=== PATIENT | female | born 1995 | race African-American/Black ===

== ENCOUNTER 2016-10-31 21:17 | Emergency (ER) | payer OTHER, MEDICAID ==
[2016-10-31 22:06] LABS: ABSOLUTE EOSINOPHILS # (AUTO) 0.1 10^3/uL (0.0-0.6); ABSOLUTE LYMPHOCYTES (AUTO) 1.7 10^3/uL (0.5-4.7); ABSOLUTE MONOCYTES (AUTO) 0.5 10^3/uL (0.1-1.4); ABSOLUTE NEUT (AUTO) 4.4 10^3/uL (1.7-8.2); BASOPHILS % (AUTO) 0.7 % (0-2); EOSINOPHILS % (AUTO) 1.9 % (0-6); HEMATOCRIT 39.7 % (36.0-47.0); HGB HCT DIFFERENCE -0.7; LYMPHOCYTES % (AUTO) 25.4 % (13-45); MEAN CORPUSCULAR HEMOGLOBIN 29.2 pg (27.0-33.4); MEAN CORPUSCULAR HGB CONC 32.7 g/dL (32.0-36.0); MEAN CORPUSCULAR VOLUME 89 fl (80-97); MONOCYTES % (AUTO) 6.8 % (3-13); RED BLOOD COUNT 4.45 10^6/uL (3.72-5.28); RED CELL DISTRIBUTION WIDTH 16.1 % (11.5-14.0); SEGMENTED NEUTROPHILS % (AUTO) 65.2 % (42-78); WHITE BLOOD COUNT 6.7 10^3/uL (4.0-10.5)
[2016-10-31 22:15] LABS: APPEARANCE,URINE SLIGHTLY-CLOUDY; BILIRUBIN,URINE NEGATIVE (NEGATIVE); GLUCOSE, URINE NEGATIVE (NEGATIVE); KETONES,URINE TRACE mg/dL (NEGATIVE); LEUKOCYTE ESTERASE,URINE NEGATIVE (NEGATIVE); NITRITE,URINE NEGATIVE (NEGATIVE); PROTEIN,URINE 30 mg/dL (NEGATIVE); URINE SPECIFIC GRAVITY 1.028; UROBILINOGEN,URINE NEGATIVE mg/dL (<2.0)
--- NOTE | 2016-10-31 22:15 | ER Document Report ---
ED Psych Disorder / Suicide - General Chief Complaint: Psych Problem Stated Complaint: PSYCH EVAL Time Seen by Provider: 10/31/16 21:23 Mode of Arrival: Ambulatory Information source: Patient TRAVEL OUTSIDE OF THE [place] IN LAST 30 DAYS: No - HPI Onset was: Cannot confirm Quality of pain: No pain Suicide Risk Factors: Age <19, Depressed, Lack of social support Normal mood: No Associated symptoms: Depressed, Flat affect Similar symptoms previously: Yes Recently seen / treated by doctor: No Notes: Patient is a 20-year-old female who presents to the emergency room complaining of depression, she reports that she had some passive thoughts of suicide earlier today but has no active plan and is not currently suicidal, she has been treated for depression in the past after an overdose on her medications, but has not followed up with mental health service, she reports that she has been staying with some friends and has been getting her life back on track, however went to go stay with her father today who seems to be a negative influence on her and makes her more depressed than she was while staying with friends, she denies any pain at the present time, states that she called [facility] to see if she could be hospitalized there because she is "tired of being depressed every day", they recommended she come to the emergency room - Related Data Allergies/Adverse Reactions: No Known Allergies Allergy (Verified 01/23/16 18:02) Past Medical History - General Information source: Patient - Social History Smoking Status: Current Every Day Smoker Chew tobacco use (# tins/day): No Frequency of alcohol use: Social Drug Abuse: Marijuana Family History: Other - Multiple family members with schizophrenia, bipolar and depression including her mother and aunt Patient has suicidal ideation: Yes Patient has homicidal ideation: No Renal/ Medical History: Denies: Hx Peritoneal Dialysis Surgical Hx: Negative - Immunizations Immunizations up to date: Yes Hx Diphtheria, Pertussis, Tetanus Vaccination: Yes Hx Pneumococcal Vaccination: 03/14/16 Review of Systems - Review of Systems Constitutional: No symptoms reported EENT: No symptoms reported Cardiovascular: No symptoms reported Respiratory: No symptoms reported Gastrointestinal: No symptoms reported Genitourinary: No symptoms reported Female Genitourinary: No symptoms reported Musculoskeletal: No symptoms reported Skin: No symptoms reported Hematologic/Lymphatic: No symptoms reported Neurological/Psychological: See HPI -: Yes All other systems reviewed and negative Physical Exam - Vital signs Vitals: Temp Pulse Resp BP Pulse Ox 97.9 F 71 16 129/93 H 99 10/31/16 21:23 10/31/16 21:23 10/31/16 21:23 10/31/16 21:23 10/31/16 21:23 Interpretation: Normal - General General appearance: Appears well, Alert - HEENT Head: Normocephalic, Atraumatic Eyes: Normal Pupils: PERRL - Respiratory Respiratory status: No respiratory distress Chest status: Nontender Breath sounds: Normal Chest palpation: Normal - Cardiovascular Rhythm: Regular Heart sounds: Normal auscultation Murmur: No - Abdominal Inspection: Normal Distension: No distension Bowel sounds: Normal Tenderness: Nontender Organomegaly: No organomegaly - Back Back: Normal, Nontender - Extremities General upper extremity: Normal inspection, Nontender, Normal color, Normal ROM , Normal temperature General lower extremity: Normal inspection, Nontender, Normal color, Normal ROM , Normal temperature, Normal weight bearing. No: Jad's sign - Neurological Neuro grossly intact: Yes Cognition: Normal Orientation: AAOx4 Sae Coma Scale Eye Opening: Spontaneous [place] Coma Scale Verbal: Oriented [place] Coma Scale Motor: Obeys Commands Sae Coma Scale Total: 15 Speech: Normal Motor strength normal: LUE, RUE, LLE, RLE Sensory: Normal - Psychological Associated symptoms: Depressed - Skin Skin Temperature: Warm Skin Moisture: Dry Skin Color: Normal Course - Re-evaluation Re-evalutation: 10/31/16 22:18 20-year-old female with depression, not currently medicated or in any mental health services, denies active suicidal ideation, therefore patient does not meet criteria for involuntary commitment, she does agree to stay in the emergency room overnight tonight to talk to her mental health team in the morning for further recommendations and resources - Vital Signs Vital signs: Temp Pulse Resp BP Pulse Ox 97.9 F 71 16 129/93 H 99 10/31/16 21:23 10/31/16 21:23 10/31/16 21:23 10/31/16 21:23 10/31/16 21:23 - Laboratory Result Diagrams: 10/31/16 21:56 10/31/16 21:56 Laboratory results interpreted by me: 10/31/16 10/31/16 10/31/16 21:56 21:56 21:56 RDW 16.1 H Direct Bilirubin 0.5 H Total Protein 8.6 H Urine Protein 30 H Urine Ketones TRACE H Salicylates < 1.0 L Acetaminophen < 10 L Discharge - Discharge Clinical Impression: Depression Qualifiers: Depression Type: unspecified Qualified Code(s): F32.9 - Major depressive disorder, single episode, unspecified Condition: Stable Disposition: PSYCH HOSP/UNIT
[2016-10-31 22:23] LABS: URINE BARBITURATES SCREEN NEGATIVE; URINE METHADONE SCREEN NEGATIVE; URINE OPIATES LOW NEGATIVE; URINE PHENCYCLIDINE SCREEN NEGATIVE
[2016-10-31 22:33] LABS: ALANINE AMINOTRANSFERASE 35 U/L (5-35); ALBUMIN 4.6 g/dL (3.7-5.6); ALKALINE PHOSPHATASE 85 U/L (50-135); ANION GAP 13 (5-19); ASPARTATE AMINO TRANSFERASE 29 U/L (5-30); BILIRUBIN,DIRECT 0.5 mg/dL (0.0-0.4); BILIRUBIN,TOTAL 0.6 mg/dL (0.2-1.3); BLOOD UREA NITROGEN 7 mg/dL (7-20); CALCIUM 10.2 mg/dL (8.4-10.2); CARBON DIOXIDE 25 mmol/L (22-30); CHLORIDE 105 mmol/L (98-107); CREATININE RESULT 0.76 mg/dL (0.52-1.25); GLUCOSE 88 mg/dL (75-110); POTASSIUM 4.5 mmol/L (3.6-5.0); SODIUM 142.7 mmol/L (137-145); TOTAL PROTEIN 8.6 g/dL (6.3-8.2)
[2016-10-31 22:36] LABS: ALCOHOL < 10 mg/dL (NONE DETECTED)
--- NOTE | 2016-11-01 09:49 | ER Document Report ---
Doctor's Note Notes: 11/01/16 09:49 I have evaluated this patient this am and has no c/o at this time. Feels all of their needs are being met and physical exam is normal. Awaiting dispositon per mental health. 11/01/16 10:38 Pt seen by Mental Health (see note). Provided her with resources and she has follow-up appointment at [facility] tomorrow. Once again, patient denies any suicidal ideation or homicidal ideation. She is going home with her stepmother.
--- NOTE | 2016-11-01 10:31 | ER Document Report ---
ED Psych Disorder / Suicide - General Mode of Arrival: Ambulatory Information source: Patient, [facility] Records TRAVEL OUTSIDE OF THE [place] IN LAST 30 DAYS: No - HPI Patient complains to provider of: Suicidal ideation - passive thoughts, no plan Onset: Just prior to arrival Onset was: Sudden Suicide Risk Factors: Depressed, Lack of social support, Prior suicide attempt Situational problems related to: Parent, Other - few social supports Normal mood: Yes Associated symptoms: Normal affect - pt smiling, Normal mood Similar symptoms previously: Yes - multiple vists last year Recently seen / treated by doctor: No <GINA MAGDALENO - Last Filed: 11/01/16 10:28> <MARILEE POSEY - Last Filed: 11/01/16 10:38> - General Chief Complaint: Psych Problem Stated Complaint: PSYCH EVAL Time Seen by Provider: 10/31/16 21:23 - HPI Notes: Patient is a 20 year old female who presented yesterday seeking assistance for her depression. Patient does have a history of Bipolar Disorder, with prior suicide attempts via OD. Patient was seen in this Department and also sent inpatient to address concerns of her mental health acuity. Upon arrival last night, patient denies suicidal ideations, plan, means, or intent and was subsequently held voluntarily overnight for resources. Patient this morning states she has not been on her meds x1 year. Patient states she stays in [place] and does not have reliable transportation. Patient states she was staying temporarily with friends who were helping her look for a job, but during that time her father moved and discarded all of her belongings. Patient states she plans to permanently reside with her father/stepmother; however, has little emotional and social supports there. Patient states her stepmother works shift coordinator and sleeps during thew day. Patient states she is just tired of being depressed every day. Patient states since she is now going to be residing with her father, she feels she needs to get back on her medications. Patient was unable to name her previous medications. She does state it has been roughly 1 year since she has followed up with [facility] and or took her medications. Patient denies suicidal/homicidal ideations. Patient provided consent to speak with her father, Roland. Patient's father, Roland : states she just came back to his home yesterday. He states she can return, he has no concerns, and he will assist her in the morning with following up with an outpatient provider. Patient was A&O. Mood was calm and cooperative with smiling affect. Patient denies suicidal/homicidal ideations, intent, plan, or means. Patient denies A/V H; delusions not noted. Thought processes were organized. Conversational speech was WNL for this patient. Intellectual abilities were estimated within average range. Attention and focus were fair. Insight, judgment and impulse control were poor. Unspecified Bipolar Disorder Posttraumatic Disorder Polysubstance Abuse Patient is psychiatrically cleared and recommended for discharge. Patient does not met IVC criteria as she denies SI.HI. Patient does have a history of prior attempts; however, no recent attempts and this morning denies all ideations. Patient states she feels her needs are to resume her medications to assist her with her mood while residing with her father. Patient provided psychoeducation that this is appropriate for outpatient services and was provided resources to engage in treatment. I consulted with Dr. Ramon in regards to the care and management of this patient. (GINA MAGDALENO) - Related Data Allergies/Adverse Reactions: No Known Allergies Allergy (Verified 01/23/16 18:02) Past Medical History - General Information source: Patient, [facility] Records - Social History Smoking Status: Current Every Day Smoker Chew tobacco use (# tins/day): No Smoking Education Provided: Yes Frequency of alcohol use: Social Drug Abuse: Cocaine, Marijuana Family History: Other - Multiple family members with schizophrenia, bipolar and depression including her mother and aunt Patient has suicidal ideation: Yes Patient has homicidal ideation: No Renal/ Medical History: Denies: Hx Peritoneal Dialysis Surgical Hx: Negative - Immunizations Immunizations up to date: Yes Hx Diphtheria, Pertussis, Tetanus Vaccination: Yes Hx Pneumococcal Vaccination: 03/14/16 <GINA MAGDALENO - Last Filed: 11/01/16 10:28> Course - Laboratory Result Diagrams: 10/31/16 21:56 10/31/16 21:56 <GINA MAGDALENO - Last Filed: 11/01/16 10:28> - Laboratory Result Diagrams: 10/31/16 21:56 10/31/16 21:56 <MARILEE POSEY - Last Filed: 11/01/16 10:38> - Vital Signs Vital signs: Temp Pulse Resp BP Pulse Ox 98.1 F 55 L 16 115/68 100 11/01/16 08:03 11/01/16 08:03 11/01/16 08:03 11/01/16 08:03 11/01/16 08:03 - Laboratory Laboratory results interpreted by me: 10/31/16 10/31/16 10/31/16 21:56 21:56 21:56 RDW 16.1 H Direct Bilirubin 0.5 H Total Protein 8.6 H Urine Protein 30 H Urine Ketones TRACE H Salicylates < 1.0 L Acetaminophen < 10 L Discharge <GINA MAGDALENO - Last Filed: 11/01/16 10:28> <MARILEE POSEY - Last Filed: 11/01/16 10:38> - Discharge Clinical Impression: Cocaine abuse, Marijuana abuse Depression Qualifiers: Depression Type: unspecified Qualified Code(s): F32.9 - Major depressive disorder, single episode, unspecified Bipolar disorder Qualifiers: Active/Remission status: remission status unspecified Qualified Code(s): F31.9 - Bipolar disorder, unspecified Condition: Stable Disposition: HOME, SELF-CARE Additional Instructions: Cocaine Abuse Cocaine causes many dangerous medical problems. Problems can occur even with "usual" amounts. Cocaine affects judgement, creating a sense of invulnerability. Cocaine users often make bad decisions that seem "great" at the time. Most cocaine users eventually will be hurt by bad job performance, damaged personal relations, crime, and unsafe sexual practices. Toxic effects of cocaine can include seizures, hallucinations, delusions, high blood pressure, heart damage, or sudden . There's always the risk of a "bad batch." But heart attacks, brain hemorrhages, or cardiac arrest can occur unpredictably even with "normal" use. Injection of cocaine is risky for abscesses, endocarditis (heart infection) , pneumonia, and AIDS. Withdrawal from cocaine often causes anxiety and drug cravings. Some users become paranoid and psychotic. Many treatment programs are available, but you must make the decision to quit. Medication can be prescribed to control the symptoms of cocaine toxicity (beta blockers or benzodiazepines). Withdrawal symptoms may require tranquilizers. Depression Your evaluation reveals that you have mental depression. While symptoms may be vague, they often include disturbance of sleep, fatigue, loss of appetite , and general loss of interest in life. While depression may be a side effect of drugs, or a reaction to a major change in your life, many cases have no known cause. If depression is acute, and related to a major loss in your life, you can expect it to clear completely with time. If you have been depressed a long time , are prone to repeated bouts of depression or low mood, or have been thinking of suicide, get help. Depression can be treated with anti-depressant medication and counselling. Long-term depression will often take a few weeks to clear, even with appropriate medication. Follow-up care is important. Contact your physician, the hospital emergency center, crisis line, or your counsellor if you are losing control or having self-destructive thoughts. Bipolar Disorder Bipolar disorder is also called manic-depressive disorder. Depression alternates with brain hyperactivity called manny. Each phase lasts from several days to a few weeks. We don't know exactly what causes bipolar disorder , but it's treatable. During the "manic phase," you may feel elated and energetic. You may have racing thoughts, rapid speech, increased activity, and grandiose ideas. During this time, you may not realize how poor your judgement is. Inappropriate spending, drug abuse, excessive alcohol use, marriage problems, and irresponsible sexual behavior are common during the manic phase. During the "depressive phase," you might feel depressed, guilty, worthless , fatigued, and unable to concentrate. You might have thoughts of suicide. Good treatments are available for bipolar disorder. Cane [place] is a classic drug for bipolar disorder, and is still often useful. If the manic phase is very mild, an antidepressant alone can be prescribed. If the manic phase is very severe, an antipsychotic medicine (such as Haldol) may be needed. The treatment must be matched to your symptoms, so it's important to work closely with your psychiatric care provider. Contact your physician, the hospital emergency center, crisis line, or your counsellor if you are losing control or having self-destructive thoughts. Please follow up with a provider of your choice. You have been provided a list of resources to assist you in doing this. In the past, you have followed up with [facility] [place]. Please return if your symptoms worsen. Referrals: [facility] [place] [Provider Group] - Follow up as needed
[2016-11-01 10:52] VITALS: BP 125/70
--- NOTE | 2016-11-01 17:05 | EKG REPORT ---
SEVERITY:- NORMAL ECG - SINUS RHYTHM : Confirmed by: Marlene Skinner MD 01-Nov-2016 17:04:27
== END 2016-11-01 10:52 | disposition home or self-care (01) ==
LOC: ER 21:17
DX: F31.9 Bipolar disorder, unspecified (principal); F12.10 Cannabis abuse, uncomplicated; F14.10 Cocaine abuse, uncomplicated; F17.200 Nicotine dependence, unspecified, uncomplicated; Z81.8 Family history of other mental and behavioral disorders; Z91.5 Personal history of self-harm
CPT/HCPCS: 36415; 80053; 80307; 81001; 84703; 85025; 93005; 93010; 99284

== ENCOUNTER 2017-10-19 10:51 | Emergency (ER) | payer MEDICAID, OTHER ==
[2017-10-19 10:57] VITALS: BP 110/69
--- NOTE | 2017-10-19 11:11 | ER Document Report ---
ED ENT - General Chief Complaint: Ear Pain Stated Complaint: EAR PROBLEM Time Seen by Provider: 10/19/17 11:00 Mode of Arrival: Ambulatory Information source: Patient TRAVEL OUTSIDE OF THE [place] IN LAST 30 DAYS: No - HPI Patient complains to provider of: Ear problem Notes: Patient is here with complaints of left ear pain and decreased hearing. She states that it has been that way for about a month. No injury. No drainage. No fever. No nausea, vomiting, diarrhea. No dizziness. No rash. No headache. Nothing makes her symptoms better or worse. - Related Data Allergies/Adverse Reactions: No Known Allergies Allergy (Verified 10/19/17 10:52) Past Medical History - Social History Smoking Status: Never Smoker Family History: Other - Multiple family members with schizophrenia, bipolar and depression including her mother and aunt Renal/ Medical History: Denies: Hx Peritoneal Dialysis - Immunizations Immunizations up to date: Yes Hx Diphtheria, Pertussis, Tetanus Vaccination: Yes Hx Pneumococcal Vaccination: 03/14/16 Review of Systems - Review of Systems -: Yes All other systems reviewed and negative Physical Exam - Vital signs Vitals: Temp Pulse Resp BP Pulse Ox 99.0 F 58 L 20 110/69 98 10/19/17 10:55 10/19/17 10:55 10/19/17 10:55 10/19/17 10:55 10/19/17 10:55 - Notes Notes: GENERAL: alert, cooperative, nontoxic, no distress. HEAD: normocephalic, atraumatic EYES: conjunctiva pink without discharge, no external redness or swelling. EARS: no external swelling, no external redness, no mastoid redness, swelling, tenderness. Ear canals are clear without swelling or drainage. TMs pearly bella , no redness, no perforation. Left TM with effusion and retraction. NOSE: atraumatic, no external swelling. clear rhinorrhea noted. MOUTH/THROAT: mucous membranes moist and pink, posterior pharynx without erythema, swelling, exudate. No trismus or drooling. NECK: soft, supple, full range of motion, no meningismus. CHEST: no distress, lungs clear and equal throughout. No wheezing, rales, rhonchi. CARDIAC: regular rate and rhythm, no murmur, normal capillary refill, normal pulses. No peripheral edema noted. BACK: full range of motion, no CVA tenderness. EXTREMITIES: full range of motion of all extremities. No redness, no swelling. NEURO: alert and oriented A&O3, no focal deficits, full range of motion of all extremities. PYSCH: appropriate mood, affect. Patient is cooperative. SKIN: pink, warm, dry, no rash. Course - Re-evaluation Re-evalutation: 10/19/17 11:09 Patient is nontoxic appearing with stable vitals. She is here with complaints of left ear pain and decreased hearing. On exam she is noted to have fluid and retraction of the left TM. No perforation. No redness or signs of infection. The patient is experiencing some eustachian tube dysfunction at this time. She was discharged home with Claritin and Flonase. Referral to ENT if her symptoms persist. Follow-up for severe pain, fever, drainage, redness or swelling around the outside ear, or for any further concerns. The patient's emergency department workup and current diagnosis were explained to the patient and or family. Follow-up instructions were provided. Medications if prescribed were discussed. Instructions for when to return to the emergency department including specific worrisome symptoms were discussed with the patient and/or family. - Vital Signs Vital signs: Temp Pulse Resp BP Pulse Ox 99.0 F 58 L 20 110/69 98 10/19/17 10:55 10/19/17 10:55 10/19/17 10:55 10/19/17 10:55 10/19/17 10:55 Discharge - Discharge Clinical Impression: Eustachian tube dysfunction Qualifiers: Laterality: left Qualified Code(s): H69.82 - Other specified disorders of Eustachian tube, left ear Condition: Stable Disposition: HOME, SELF-CARE Additional Instructions: Take medications as prescribed. Follow-up with ENT if not better in 1 week, sooner for worsening symptoms, high fever, pain, drainage, any further concerns. Prescriptions: Fluticasone Propionate [Flonase Nasal [place] 50 Mcg/[place] 16 gm] 1 spray NASL Q12 #1 inhaler Loratadine [Claritin 10 mg Tablet] 10 mg PO DAILY #15 tablet Forms: Smoking Cessation Education Referrals: [facility]ERTRU[facility] STYLES MD [Primary Care Provider] - Follow up as needed SERGIO JORDAN DO [ASSOCIATE] - Follow up as needed
== END 2017-10-19 11:09 | disposition home or self-care (01) ==
LOC: ER 10:51
DX: H69.82 Other specified disorders of Eustachian tube, left ear (principal); H92.02 Otalgia, left ear
CPT/HCPCS: 99282

== ENCOUNTER 2018-01-31 10:42 | Emergency (ER) | payer MEDICAID ==
[2018-01-31 10:50] VITALS: BP 128/75
--- NOTE | 2018-01-31 11:34 | ER Document Report ---
HPI - HPI Patient complains to provider of: Sinus problems Pain Level: 4 Context: Patient is a 22-year-old healthy female complaining of sinus pressure and drainage 3-4 days. Patient was recently seen by ENT for fluid behind her left ear. She was prescribed 2 medications which she has picked up neither of them as of yet. Patient also complains of intermittent sharp mid to lower abdominal pains 2 days. Patient is presently on her menses. She denies any nausea, vomiting or fever. No vaginal pain, discharge or odor. No urinary symptoms. No back pain. No fever. Associated Symptoms: None Exacerbated by: Denies Relieved by: Denies Similar symptoms previously: Yes Recently seen / treated by doctor: Yes - ROS Systems Reviewed and Negative: Yes All other systems reviewed and negative - REPRODUCTIVE Reproductive: DENIES: : Past Medical History - General Information source: Patient - Social History Smoking Status: Current Every Day Smoker Frequency of alcohol use: None Drug Abuse: None Lives with: Family Family History: Reviewed & Not Pertinent, Other - Multiple family members with schizophrenia, bipolar and depression including her mother and aunt - Medical History Medical History: Negative - Past Medical History Cardiac Medical History: Reports: None Renal/ Medical History: Denies: Hx Peritoneal Dialysis - Immunizations Immunizations up to date: Yes Hx Diphtheria, Pertussis, Tetanus Vaccination: Yes Hx Pneumococcal Vaccination: 03/14/16 Vertical Provider Document - CONSTITUTIONAL Agree With Documented VS: Yes Exam Limitations: No Limitations - INFECTION CONTROL TRAVEL OUTSIDE OF THE [place] IN LAST 30 DAYS: No - HEENT HEENT: PERRLA, Pharyngeal Erythema Notes: Left TM dull, positive effusion. Sinuses are nontender - NECK Neck: Normal Inspection, Supple - RESPIRATORY Respiratory: Breath Sounds Normal, No Respiratory Distress - CARDIOVASCULAR Cardiovascular: Regular Rate, Regular Rhythm - GI/ABDOMEN Gastrointestinal: Abdomen Soft, Abdomen Tender - Mild chin-umbilical and suprapubic tenderness. No guarding - BACK Back: Normal Inspection. negative: CVA Tenderness-Right, CVA Tenderness-Left - NEURO Level of Consciousness: Awake, Alert, Appropriate - DERM Integumentary: Warm, Dry, No Rash Course - Re-evaluation Re-evalutation: 01/31/18 11:32 History and physical are consistent with an upper respiratory viral infection with a left serous otitis media. Patient has medications waiting for her at the pharmacy for this. After performing a Medical Screening Examination, I estimate there is LOW risk for ACUTE APPENDICITIS, BOWEL OBSTRUCTION, ACUTE CHOLECYSTITIS, PERFORATED DIVERTICULITIS, INCARCERATED HERNIA, PANCREATITIS, PELVIC INFLAMMATORY DISEASE, PERFORATED ULCER, ECTOPIC , or TUBO- OVARIAN ABSCESS, thus I consider the discharge disposition reasonable. Also, there is no evidence or peritonitis, sepsis, or toxicity. I have reevaluated this patient multiple times and no significant life threatening changes are noted. The patient and I have discussed the diagnosis and risks, and we agree with discharging home with close follow-up with the understanding that symptoms and presentations can change. We also discussed returning to the Emergency Department immediately if new or worsening symptoms occur. We have discussed the symptoms which are most concerning (e.g., bloody stool, fever, changing or worsening pain, vomiting) that necessitate immediate return. - Vital Signs Vital signs: Temp Pulse Resp BP Pulse Ox 98.3 F 65 16 128/75 H 98 01/31/18 10:49 01/31/18 10:49 01/31/18 10:49 01/31/18 10:49 01/31/18 10:49 Discharge - Discharge Clinical Impression: Acute sinusitis Qualifiers: Sinusitis location: unspecified location Recurrence: non-recurrent Qualified Code(s): J01.90 - Acute sinusitis, unspecified Abdominal pain Qualifiers: Abdominal location: periumbilical Qualified Code(s): R10.33 - Periumbilical pain Condition: Stable Disposition: HOME, SELF-CARE Instructions: Abdominal Pain ([facility]), Antispasmodics ([facility]), Steroid Medication Additional Instructions: Take medications as prescribed Please meat pickler medications prescribed by the ENT and take those as prescribed Push fluids Follow-up with ENT as scheduled Prescriptions: Prednisone 20 mg PO BID #16 tablet Referrals: GERTRUDE STYLES MD [Primary Care Provider] - Follow up as needed
== END 2018-01-31 11:52 | disposition home or self-care (01) ==
LOC: ER 10:42
DX: J01.90 Acute sinusitis, unspecified (principal); R10.33 Periumbilical pain; H93.8X2 Other specified disorders of left ear; F17.200 Nicotine dependence, unspecified, uncomplicated
CPT/HCPCS: 99283

== ENCOUNTER 2018-02-01 03:10 | Emergency (ER) | payer SELFPAY ==
[2018-02-01 04:22] LABS: APPEARANCE,URINE CLEAR; BILIRUBIN,URINE NEGATIVE (NEGATIVE); COLOR,URINE YELLOW; GLUCOSE, URINE NEGATIVE (NEGATIVE); KETONES,URINE NEGATIVE (NEGATIVE); LEUKOCYTE ESTERASE,URINE NEGATIVE (NEGATIVE); NITRITE,URINE NEGATIVE (NEGATIVE); PROTEIN,URINE 30 mg/dL (NEGATIVE); URINE SPECIFIC GRAVITY 1.013; UROBILINOGEN,URINE NEGATIVE mg/dL (<2.0)
[2018-02-01 04:35] LABS: URINE AMPHETAMINES SCREEN NEGATIVE; URINE BARBITURATES SCREEN NEGATIVE; URINE BENZODIAZEPINES SCREEN NEGATIVE; URINE COCAINE SCREEN NEGATIVE; URINE MARIJUANA (THC) SCREEN UNCONFIRMED POSITIVE; URINE METHADONE SCREEN NEGATIVE; URINE PHENCYCLIDINE SCREEN NEGATIVE
[2018-02-01 04:52] LABS: ABSOLUTE BASOPHILS # (AUTO) 0.1 10^3/uL (0.0-0.2); ABSOLUTE EOSINOPHILS # (AUTO) 0.3 10^3/uL (0.0-0.6); ABSOLUTE LYMPHOCYTES (AUTO) 2.4 10^3/uL (0.5-4.7); ABSOLUTE MONOCYTES (AUTO) 0.6 10^3/uL (0.1-1.4); ABSOLUTE NEUT (AUTO) 4.4 10^3/uL (1.7-8.2); BASOPHILS % (AUTO) 0.7 % (0-2); EOSINOPHILS % (AUTO) 3.9 % (0-6); HEMATOCRIT 34.6 % (36.0-47.0); HEMOGLOBIN 11.8 g/dL (12.0-15.5); LYMPHOCYTES % (AUTO) 31.3 % (13-45); MEAN CORPUSCULAR HEMOGLOBIN 32.5 pg (27.0-33.4); MEAN CORPUSCULAR HGB CONC 33.9 g/dL (32.0-36.0); MEAN CORPUSCULAR VOLUME 96 fl (80-97); MONOCYTES % (AUTO) 7.7 % (3-13); PLATELET COUNT 254 10^3/uL (150-450); RED BLOOD COUNT 3.61 10^6/uL (3.72-5.28); RED CELL DISTRIBUTION WIDTH 13.9 % (11.5-14.0); SEGMENTED NEUTROPHILS % (AUTO) 56.4 % (42-78); TOTAL CELLS COUNTED % (AUTO) 100 %; WHITE BLOOD COUNT 7.7 10^3/uL (4.0-10.5)
[2018-02-01 04:58] LABS: ALANINE AMINOTRANSFERASE 39 U/L (9-52); ALBUMIN 3.6 g/dL (3.5-5.0); ALCOHOL 46 mg/dL (NONE DETECTED); ALKALINE PHOSPHATASE 63 U/L (38-126); ANION GAP 14 (5-19); ASPARTATE AMINO TRANSFERASE 31 U/L (14-36); BILIRUBIN,DIRECT 0.1 mg/dL (0.0-0.4); BILIRUBIN,TOTAL 0.1 mg/dL (0.2-1.3); BLOOD UREA NITROGEN 13 mg/dL (7-20); CALCIUM 8.8 mg/dL (8.4-10.2); CARBON DIOXIDE 23 mmol/L (22-30); CHLORIDE 110 mmol/L (98-107); GLUCOSE 93 mg/dL (75-110); POTASSIUM 3.7 mmol/L (3.6-5.0); SODIUM 147.2 mmol/L (137-145); TOTAL PROTEIN 6.8 g/dL (6.3-8.2)
[2018-02-01 05:05] LABS: ACETAMINOPHEN < 10 ug/mL (10-30); SALICYLATE < 1.0 mg/dL (2.0-20.0)
[2018-02-01] MEDS ORDERED: DIPH/PERTUSS(ACELL)/TETANUS VAC/PF 0.5 ML SYR (>=10YO) IM ONE ×2 (05:17→09:00)
--- NOTE | 2018-02-01 05:19 | ER Document Report ---
ED General - General TRAVEL OUTSIDE OF THE [place] IN LAST 30 DAYS: No <GERMAN PACHECO - Last Filed: 02/01/18 06:26> <GLADYS KEY - Last Filed: 02/01/18 16:00> <CAHRIS CERRATO - Last Filed: 02/01/18 16:12> - General Chief Complaint: Psych Problem Stated Complaint: PSYCH PROBLEM Time Seen by Provider: 02/01/18 03:45 Notes: Patient is a 22-year-old female who presents with complaint of depression. She says she has had a lot of things happen including 2 family members recently as well as having will get a good job and just many emotional things compounding at one time. She says she has had thoughts of suicide. Today she did some self cutting and took a knife and made small cuts on her abdominal wall. She is unsure when her last tetanus shot was. (GERMAN PACHECO) - Related Data Allergies/Adverse Reactions: No Known Allergies Allergy (Verified 01/31/18 10:42) Past Medical History - Social History Smoking Status: Current Some Day Smoker Frequency of alcohol use: None Drug Abuse: Marijuana Family History: Reviewed & Not Pertinent, Other - Multiple family members with schizophrenia, bipolar and depression including her mother and aunt Patient has suicidal ideation: Yes Patient has homicidal ideation: No Renal/ Medical History: Denies: Hx Peritoneal Dialysis Psychiatric Medical History: Reports: Hx Depression - Immunizations Immunizations up to date: Yes Hx Diphtheria, Pertussis, Tetanus Vaccination: Yes Hx Pneumococcal Vaccination: 03/14/16 <GERMAN PACHECO - Last Filed: 02/01/18 06:26> Review of Systems <GERMAN PACHECO - Last Filed: 02/01/18 06:26> <GLADYS KEY - Last Filed: 02/01/18 16:00> <CHARIS CERRATO - Last Filed: 02/01/18 16:12> - Review of Systems Notes: My Normal Review Basic REVIEW OF SYSTEMS: CONSTITUTIONAL : Denies fever, chills, or sweats. Denies recent illness. EENT: Denies eye, ear, throat, or mouth pain or symptoms. Denies nasal or sinus congestion. RESPIRATORY: Denies cough, cold, or chest congestion. Denies shortness of breath, difficulty breathing, or wheezing. GASTROINTESTINAL: Denies abdominal pain. Denies nausea, vomiting, or diarrhea. MUSCULOSKELETAL: Denies neck or back pain or joint pain or swelling. SKIN: Denies rash or skin lesions. NEUROLOGICAL: Denies altered mental status or loss of consciousness. Denies headache. Denies weakness or paralysis or loss of use of either side. Denies problems with gait or speech. Denies sensory or motor loss. Psychiatric: Depression, suicidal thoughts ALL OTHER SYSTEMS REVIEWED AND NEGATIVE. (GERMAN PACHECO) Physical Exam <GERMAN PACHECO - Last Filed: 02/01/18 06:26> <GLADYS KEY - Last Filed: 02/01/18 16:00> <CHARIS CERRATO - Last Filed: 02/01/18 16:12> - Vital signs Vitals: Temp Pulse Resp BP Pulse Ox 98.0 F 75 16 135/78 H 97 02/01/18 03:19 02/01/18 03:19 02/01/18 03:19 02/01/18 03:19 02/01/18 03:19 - Notes Notes: General Appearance: Well nourished, alert, cooperative, no acute distress, no obvious discomfort. Well-appearing. Vitals: reviewed, See vital signs table. Head: no swelling or tenderness to the head Eyes: PERRL, EOMI, Conjuctiva clear Lungs: No wheezing, No rales, No rhonci, No accessory muscle use, good air exchange bilaterally. Heart: Normal rate, Regular rythm, No murmur, no rub Abdomen: Normal BS, soft, No rigidity, No abdominal tenderness, No guarding, no rebound several small superficial cut smalls on her abdomen with no active bleeding and none requiring suturing. They cleaned these abrasions with peroxide. Extremities: strength 5/5 in all extremities, good pulses in all extremities, no swelling or tenderness in the extremities, no edema. Skin: warm, dry, appropriate color, no rash Neuro: speech clear, oriented x 3, normal affect, responds appropriately to questions. (GERMAN PACHECO) Course - Laboratory Result Diagrams: 02/01/18 04:38 02/01/18 04:38 <GERMAN PACHECO - Last Filed: 02/01/18 06:26> - Laboratory Result Diagrams: 02/01/18 04:38 02/01/18 04:38 <GLADYS KEY - Last Filed: 02/01/18 16:00> - Laboratory Result Diagrams: 02/01/18 04:38 02/01/18 04:38 <CHARIS CERRATO - Last Filed: 02/01/18 16:12> - Vital Signs Vital signs: Temp Pulse Resp BP Pulse Ox 97.9 F 78 18 108/60 98 02/01/18 08:06 02/01/18 08:06 02/01/18 08:06 02/01/18 08:06 02/01/18 08:06 - Laboratory Laboratory results interpreted by me: 02/01/18 02/01/18 02/01/18 03:40 04:38 04:38 RBC 3.61 L Hgb 11.8 L Hct 34.6 L Sodium 147.2 H Chloride 110 H Total Bilirubin 0.1 L Urine Protein 30 H Urine Blood SMALL H Salicylates < 1.0 L Acetaminophen < 10 L - EKG Interpretation by Me Additional EKG results interpreted by me: 02/01/18 05:14 EKG is reviewed and interpreted by me. EKG shows sinus rhythm with rate of [address] segment elevation or depression. No ischemic T-wave inversions. KS interval, QRS duration, QTc intervals are within normal range. No old EKG available for comparison. (GERMAN PACHECO) Discharge <GERMAN PACHECO - Last Filed: 02/01/18 06:26> <GLADYS KEY - Last Filed: 02/01/18 16:00> <CHARIS CERRATO - Last Filed: 02/01/18 16:12> - Discharge Clinical Impression: Suicidal ideation, Self-injurious behavior Depression Qualifiers: Depression Type: unspecified Qualified Code(s): F32.9 - Major depressive disorder, single episode, unspecified Condition: Stable Disposition: HOME, SELF-CARE Additional Instructions: DEPRESSION: Your evaluation reveals that you have mental depression. While symptoms may be vague, they often include disturbance of sleep, fatigue, loss of appetite , and general loss of interest in life. While depression may be a side effect of drugs, or a reaction to a major change in your life, many cases have no known cause. If depression is acute, and related to a major loss in your life, you can expect it to clear completely with time. If you have been depressed a long time , are prone to repeated bouts of depression or low mood, or have been thinking of suicide, get help. Depression can be treated with anti-depressant medication and counselling. Long-term depression will often take a few weeks to clear, even with appropriate medication. Follow-up care is important. SUICIDAL IDEATION: Suicidal ideation is a common medical term for thoughts about suicide, which may be as detailed as a formulated plan, without the suicidal act itself. Although most people who undergo suicidal ideation do not commit suicide, some go on to make suicide attempts. The range of suicidal ideation varies greatly from fleeting to detailed planning, role playing, and unsuccessful attempts. While thoughts about suicide are common, most people do not carry out serious actions to commit suicide. Based upon your evaluation and discussion with you, we do not believe you are currently at risk to act upon your thoughts of suicide. You have agreed to return to the Emergency Department, at any time , if you feel inclined to act upon your suicidal thoughts. FOLLOW-UP CARE: You have been provided the outpatient Mental Health/Substance Abuse resource sheet. you have been instructed to utilize Mobile Crisis this evening and any other time you may feel overwhelmed. You should walk in to [facility] first thing tomorrow (02/02/18) morning (0800) to initiate services. If you experience worsening or a significant change in your symptoms, notify the physician immediately or return to the Emergency Department at any time for re- evaluation. Referrals: GERTRUDE STYLES MD [Primary Care Provider] - Follow up as needed [facility] Crisis Team [Outside] - Follow up as needed [facility] [Outside] - 02/02/18 8:00 am
--- NOTE | 2018-02-01 08:47 | EKG REPORT ---
SEVERITY:- OTHERWISE NORMAL ECG - SINUS TACHYCARDIA ST ELEV, PROBABLE NORMAL EARLY REPOL PATTERN : Confirmed by: Bernice Garcia 01-Feb-2018 08:46:11
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
--- NOTE | 2018-02-01 15:57 | ER Document Report ---
Doctor's Note Notes: 02/01/18 15:54 Rounds: Chart reviewed and patient sound asleep, did not awaken to my voice calling her a couple of times. Patient is being evaluated for suicidal ideation and depression and anxiety. Lab studies were all normal except for the patient's alcohol level of 46 and positive marijuana on her drug screen. Vital signs were all essentially normal. Patient appears to be medically stable for transfer or discharge. Belkis Jackson MD
[2018-02-01 16:31] VITALS: BP 122/87
--- NOTE | 2018-02-04 08:57 | EKG REPORT ---
SEVERITY:- NORMAL ECG - SINUS RHYTHM : Confirmed by: Bernice Garcia 04-Feb-2018 08:56:30
== END 2018-02-01 16:36 | disposition home or self-care (01) ==
LOC: ER 03:10
DX: F32.9 Major depressive disorder, single episode, unspecified (principal); F12.10 Cannabis abuse, uncomplicated; X78.9XXA Intentional self-harm by unspecified sharp object, initial encounter; F17.200 Nicotine dependence, unspecified, uncomplicated
CPT/HCPCS: 36415; 80053; 80307; 81001; 84703; 85025; 90471; 90715; 93005; 93010; 99285

== ENCOUNTER 2019-04-20 09:50 | Emergency (ER) | payer OTHER ==
[2019-04-20 09:56] VITALS: BP 131/67
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
== END 2019-04-20 10:27 | disposition home or self-care (01) ==
LOC: ER 09:50
DX: S16.1XXA Strain of muscle, fascia and tendon at neck level, initial encounter (principal); R51 Headache; M79.18 Myalgia, other site; V49.50XA Passenger injured in collision with unspecified motor vehicles in traffic accident, initial encounter; Z72.0 Tobacco use
CPT/HCPCS: 99283

== ENCOUNTER 2019-06-26 10:01 | Emergency (ER) | payer OTHER ==
--- NOTE | 2019-06-26 10:31 | ER Document Report ---
ED Medical Screen (RME) - General Chief Complaint: Abscess Stated Complaint: ABSCESS/BUTTOCK, LEFT EAR PAIN Time Seen by Provider: 06/26/19 10:28 Mode of Arrival: Ambulatory Information source: Patient Notes: 23-year-old female patient presents emergency department chief complaint of left ear pain over the last 3 to 4 days, states it feels like her ear is clogged. Patient also reports she has a abscess near her rectum. She states this is also been there for a couple of days. She denies any history of having abscesses in the past. Denies any drainage from the area. Unable to assess the abscess due to seated position in triage. Patient will be taken to a room for further evaluation. I have greeted and performed a rapid initial assessment of this patient. A comprehensive ED assessment and evaluation of the patient, analysis of test results and completion of the medical decision making process will be conducted by additional ED providers. I have specifically instructed the patient or family members with the patient to immediately return to any nursing staff should anything change in the patient's condition or with their chief complaint. TRAVEL OUTSIDE OF THE [place] IN LAST 30 DAYS: No - Related Data Allergies/Adverse Reactions: No Known Allergies Allergy (Verified 01/31/18 10:42) Past Medical History - Social History Family history: Reviewed & Not Pertinent Renal/ Medical History: Denies: Hx Peritoneal Dialysis Psychiatric Medical History: Reports: Hx Anxiety, Hx Depression - Immunizations Immunizations up to date: Yes Hx Diphtheria, Pertussis, Tetanus Vaccination: Yes - Is an 18 Physical Exam - Vital signs Vitals: Temp Pulse Resp BP Pulse Ox 98.6 F 93 16 122/61 96 06/26/19 10:06/26/19 10:06/26/19 10:06/26/19 10:06/26/19 10:19 Course - Vital Signs Vital signs: Temp Pulse Resp BP Pulse Ox 98.6 F 93 16 122/61 96 06/26/19 10:06/26/19 10:06/26/19 10:06/26/19 10:06/26/19 10:19
[2019-06-26] MEDS ORDERED: HYDROCODONE/ACETAMINOPHEN 5-325 MG TABLET PO ONE (12:49)
[2019-06-26] MEDS ORDERED: SULFAMETHOXAZOLE/TRIMETHOPRIM 800-160 MG TABLET PO ONE (12:59)
--- NOTE | 2019-06-26 13:05 | ER Document Report ---
HPI - HPI Patient complains to provider of: Abscess Time Seen by Provider: 06/26/19 10:28 Onset: Last week Onset/Duration: Persistent Quality of pain: Achy Pain Level: 5 Context: Patient presents complaining of left ear feeling as though it is full for the past 3 to 4 days. Patient also complains of abscess to the sacral area for the past week. No fever. Patient denies any history of MRSA. Associated Symptoms: Earache Exacerbated by: Sitting Relieved by: Denies Similar symptoms previously: No Recently seen / treated by doctor: No - ROS ROS below otherwise negative: Yes Systems Reviewed and Negative: Yes All other systems reviewed and negative - CONSTITUTIONAL Constitutional: DENIES: Fever, Chills - EENT EENT: REPORTS: Ear Pain - REPRODUCTIVE Reproductive: DENIES: : - DERM Notes: Abscess to sacral area Past Medical History - General Information source: Patient - Social History Smoking Status: Former Smoker Frequency of alcohol use: None Drug Abuse: None Occupation: Foodservice Family History: Reviewed & Not Pertinent, Other - Multiple family members with schizophrenia, bipolar and depression including her mother and aunt Patient has suicidal ideation: No Patient has homicidal ideation: No Renal/ Medical History: Denies: Hx Peritoneal Dialysis Psychiatric Medical History: Reports: Hx Anxiety, Hx Depression Surgical Hx: Negative - Immunizations Immunizations up to date: Yes Hx Diphtheria, Pertussis, Tetanus Vaccination: Yes - Is an 18 Hx Pneumococcal Vaccination: 03/14/16 Vertical Provider Document - CONSTITUTIONAL Agree With Documented VS: Yes Exam Limitations: No Limitations General Appearance: WD/WN, No Apparent Distress - INFECTION CONTROL TRAVEL OUTSIDE OF THE [place] IN LAST 30 DAYS: No - HEENT HEENT: Atraumatic, Normocephalic Notes: small amount of cerumen to L external auditory canal, no effusion, no edema or bulging of TM. No mastoid tenderness or swelling - NECK Neck: Normal Inspection, Supple - RESPIRATORY Respiratory: Breath Sounds Normal, No Respiratory Distress - CARDIOVASCULAR Cardiovascular: Regular Rate, Regular Rhythm - GI/ABDOMEN Gastrointestinal: Abdomen Soft - BACK Back: Normal Inspection - MUSCULOSKELETAL/EXTREMETIES Musculoskeletal/Extremeties: RICHI BELLE - NEURO Level of Consciousness: Awake, Alert, Appropriate Motor/Sensory: No Motor Deficit - DERM Integumentary: Warm, Dry, Abscess - Abscess to right buttock to superior aspect of gluteal cleft Course - Vital Signs Vital signs: Temp Pulse Resp BP Pulse Ox 98.6 F 93 16 122/61 96 06/26/19 10:19 06/26/19 10:19 06/26/19 10:19 06/26/19 10:06/26/19 10:19 Procedures - Incision and Drainage Right Buttock Type: Simple Anesthetic type: 1% Lidocaine Blade size: 11 I&D procedure: Betadine prep applied Incision Method: Incision made by scalpel Amount/type of drainage: Moderate amount of purulent drainage Discharge - Discharge Clinical Impression: Excessive cerumen in left ear canal, Abscess, Encounter for incision and drainage procedure Condition: Stable Disposition: HOME, SELF-CARE Instructions: Abscess ([facility]), Oral Narcotic Medication ([facility]), Post Incision and Drainage, Trimethoprim-Sulfa ([facility]) Additional Instructions: Return immediately for any new or worsening symptoms: Fever, increased swelling, increased pain, lack of improvement or any worsening symptoms Followup with your primary care provider, call tomorrow to make a followup appoi ntment Wound covered as it continues to heal Prescriptions: Sulfamethoxazole/Trimethoprim [Bactrim Ds Tablet] 1 each PO BID #20 tablet Naproxen [Naprosyn 250 Nmg Tablet] 1 tab PO BID #14 tablet Hydrocodone/Acetaminophen [[facility] 5-325 mg Tablet] 1 tab PO Q6 PRN #8 tablet PRN Reason: Forms: Return to Work Referrals: [facility] [Provider Group] - Follow up as needed [facility] [Provider [facility]] - Follow up as needed
[2019-06-26 13:21] VITALS: BP 110/65
== END 2019-06-26 13:21 | disposition home or self-care (01) ==
LOC: ER 10:01
PROC: 0H98XZZ Drainage of Buttock Skin, External Approach (ICD-10-PCS; principal; 2019-06-26)
DX: H61.22 Impacted cerumen, left ear (principal); L02.31 Cutaneous abscess of buttock; H92.02 Otalgia, left ear; Z87.891 Personal history of nicotine dependence
CPT/HCPCS: 99283; 10060; A6266

== ENCOUNTER 2019-12-18 03:31 | Emergency (ER) | payer SELFPAY ==
--- NOTE | 2019-12-18 04:11 | ER Document Report ---
ED Psych Disorder / Suicide - General TRAVEL OUTSIDE OF THE [place] IN LAST 30 DAYS: No <CHRISTA BARBOSA - Last Filed: 12/18/19 06:13> <MARYCRUZ MARQUEZ - Last Filed: 12/18/19 13:20> <RMEI SOUTH - Last Filed: 12/18/19 14:58> - General Chief Complaint: Psych Problem Stated Complaint: ALTERED MENTAL STATUS Time Seen by Provider: 12/18/19 03:50 Primary Care Provider: [facility] [Outside] - Follow up as needed [facility] [Outside] - 12/18/19 Notes: Patient is a 24-year-old female that comes emergency department by EMS from home for chief complaint of "wanting to get my mind right". She states that she just does not feel right in her mind, she states she feels like she might be schizophrenic, she states she has been hearing voices. She denies that the voices or seeing anything sinister or dangerous, she denies feeling unsafe living with her friends, she denies depression, suicidal ideation, homicidal ideation. She states that she has been out of her psychiatric medications for anxiety/depression/mood since last year, she states she obtained a prescription but she never filled it, she is unable to tell me what she was supposed to be taking. She states she does smoke marijuana but she denies recreational drugs otherwise. She denies . She denies alcohol or smoking. She denies any sick symptoms including fever, nausea/vomiting, shortness of breath, chest pain, headache. (CHRISTA BARBOSA) - Related Data Allergies/Adverse Reactions: No Known Allergies Allergy (Verified 01/31/18 10:42) Past Medical History - General Information source: Patient - Social History Smoking Status: Never Smoker Frequency of alcohol use: None Drug Abuse: Marijuana Lives with: Friend Family History: Reviewed & Not Pertinent, Other - Multiple family members with schizophrenia, bipolar and depression including her mother and aunt Patient has homicidal ideation: No Renal/ Medical History: Denies: Hx Peritoneal Dialysis Psychiatric Medical History: Reports: Hx Anxiety, Hx Depression - Immunizations Immunizations up to date: Yes Hx Diphtheria, Pertussis, Tetanus Vaccination: Yes - Is an 18 Hx Pneumococcal Vaccination: 03/14/16 <CHRISTA BARBOSA - Last Filed: 07/06/20 06:13> Review of Systems - Review of Systems Constitutional: No symptoms reported EENT: No symptoms reported Cardiovascular: No symptoms reported Respiratory: No symptoms reported Gastrointestinal: No symptoms reported Genitourinary: No symptoms reported Female Genitourinary: No symptoms reported Musculoskeletal: No symptoms reported Skin: No symptoms reported Hematologic/Lymphatic: No symptoms reported Neurological/Psychological: See HPI <CHRISTA BARBOSA - Last Filed: 12/18/19 06:13> Physical Exam <CHRISTA BARBOSA - Last Filed: 12/18/19 06:13> - Notes Notes: GENERAL: Alert, interacts well. No acute distress. HEAD: Normocephalic, atraumatic. EYES: Pupils equal, round, and reactive to light. Extraocular movements intact. ENT: Oral mucosa moist, tongue midline. Oropharynx unremarkable. Airway patent. NECK: Full range of motion. Supple. Trachea midline. No lymphadenopathy. LUNGS: Clear to auscultation bilaterally, no wheezes, rales, or rhonchi. No respiratory distress. Non-tender chest wall. HEART: Regular rate and rhythm. No murmur ABDOMEN: Soft, non-tender. Non-distended. Bowel sounds present in all 4 quadrants. GENITOURINARY: Deferred EXTREMITIES: Moves all 4 extremities spontaneously. No edema, normal radial and dorsalis pedis pulses bilaterally. No cyanosis. BACK: no cervical, thoracic, lumbar midline tenderness. No saddle anesthesia, normal distal neurovascular exam. Moves all extremities in full range of motion. NEUROLOGICAL: Alert and oriented x3. Normal speech. Cranial nerves II through XII grossly intact. Strength 5/5 in all extremities. PSYCH: Slightly sluggish, smiling, easily distracted, poor insight. Not responding to any internal stimuli. Cooperative. SKIN: Warm, dry, normal turgor. No rashes or lesions noted. (CHRISTA BARBOSA) Course <CHRISTA BARBOSA - Last Filed: 12/18/19 06:13> - Laboratory Result Diagrams: 12/18/19 06:10 12/18/19 06:10 <MARYCRUZ MARQUEZ - Last Filed: 12/18/19 13:20> - Laboratory Result Diagrams: 12/18/19 06:10 12/18/19 06:10 <REMI [facility] - Last Filed: 12/18/19 14:58> - Re-evaluation Re-evalutation: Patient is cooperative and well-appearing. She has no sick complaints, no concerning findings on physical exam. She does not appear to be acutely psychotic although she is complaining of hearing voices, not being on her current medications, and wanting mental health assistance. Patient will be here voluntarily as she does not meet IVC criteria, she will be medically cleared pending mental health evaluation. Patient states appreciation and agreement. (CHRISTA BARBOSA) - Laboratory Laboratory results interpreted by me: 12/18/19 12/18/19 12/18/19 06:10 06:10 11:24 MCV 99 H MCH 33.5 H RDW 14.1 H Urine Protein 100 H Urine Ketones 20 H Urine Bilirubin SMALL H Urine Urobilinogen 4.0 H Ur Leukocyte Esterase SMALL H Salicylates < 1.0 L Acetaminophen < 10 L - EKG Interpretation by Me Additional EKG results interpreted by me: EKG shows sinus bradycardia at a rate of 54. QTc 391, CA interval of 122. No T wave inversions or ST segment changes in consecutive leads. (CHRISTA BARBOSA) Discharge <CHRISTA BARBOSA - Last Filed: 12/18/19 06:13> <MARYCRUZ MARQUEZ - Last Filed: 12/18/19 13:20> <REMI [facility] - Last Filed: 12/18/19 14:58> - Discharge Clinical Impression: Has run out of medications, reported psychosis Clinical Impression: (Ruled Out): Hallucinations Condition: Stable Disposition: HOME, SELF-CARE Additional Instructions: You have been evaluated by both medical and behavioral health teams and have b een deemed appropriate for discharge. You have been provided a local resource list of area providers including mobile crisis contact information. You are highly encouraged to follow through with mental health treatment for both medication management and therapeutic services. You reported [facility] will be your provider; you can do a walk in to their facility to start the process of outpatient services. AT ANY TIME, IF YOUR SYMPTOMS CHANGE SIGNIFICANTLY OR WORSEN OR YOU DEVELOP NEW SYMPTOMS, RETURN TO THE EMERGENCY DEPARTMENT IMMEDIATELY FOR RE-EVALUATION. Referrals: [facility] [Outside] - Follow up as needed [facility] [Outside] - 12/18/19
[2019-12-18 06:19] LABS: ABSOLUTE EOSINOPHILS # (AUTO) 0.2 10^3/uL (0.0-0.6); ABSOLUTE LYMPHOCYTES (AUTO) 2.4 10^3/uL (0.5-4.7); ABSOLUTE MONOCYTES (AUTO) 0.6 10^3/uL (0.1-1.4); ABSOLUTE NEUT (AUTO) 4.2 10^3/uL (1.7-8.2); BASOPHILS % (AUTO) 0.6 % (0-2); EOSINOPHILS % (AUTO) 2.2 % (0-6); HEMATOCRIT 38.2 % (36.0-47.0); LYMPHOCYTES % (AUTO) 32.4 % (13-45); MEAN CORPUSCULAR HEMOGLOBIN 33.5 pg (27.0-33.4); MEAN CORPUSCULAR HGB CONC 33.9 g/dL (32.0-36.0); MEAN CORPUSCULAR VOLUME 99 fl (80-97); MONOCYTES % (AUTO) 8.3 % (3-13); PLATELET COUNT 213 10^3/uL (150-450); RED BLOOD COUNT 3.87 10^6/uL (3.72-5.28); RED CELL DISTRIBUTION WIDTH 14.1 % (11.5-14.0); SEGMENTED NEUTROPHILS % (AUTO) 56.5 % (42-78); TOTAL CELLS COUNTED % (AUTO) 100 %; WHITE BLOOD COUNT 7.4 10^3/uL (4.0-10.5)
[2019-12-18 06:38] LABS: ALBUMIN 4.1 g/dL (3.5-5.0); ALKALINE PHOSPHATASE 63 U/L (38-126); ANION GAP 7 (5-19); ASPARTATE AMINO TRANSFERASE 23 U/L (14-36); BILIRUBIN,TOTAL 0.6 mg/dL (0.2-1.3); BLOOD UREA NITROGEN 9 mg/dL (7-20); CALCIUM 9.4 mg/dL (8.4-10.2); CARBON DIOXIDE 28 mmol/L (22-30); CHLORIDE 103 mmol/L (98-107); GLUCOSE 93 mg/dL (75-110); POTASSIUM 3.6 mmol/L (3.6-5.0); TOTAL PROTEIN 7.3 g/dL (6.3-8.2)
[2019-12-18 06:42] LABS: ACETAMINOPHEN < 10 ug/mL (10-30); ALCOHOL < 10 mg/dL (NONE DETECTED); SALICYLATE < 1.0 mg/dL (2.0-20.0)
--- NOTE | 2019-12-18 10:38 | EKG REPORT ---
SEVERITY:- ABNORMAL ECG - SINUS ALICIA 54. ABNORMAL Q SUGGESTS ANTERIOR INFARCT CLINICAL CORRELATION NEEDED. : Confirmed by: David Aviles MD 18-Dec-2019 10:37:50
[2019-12-18 11:57] LABS: APPEARANCE,URINE CLOUDY; BILIRUBIN,URINE SMALL (NEGATIVE); COLOR,URINE YELLOW; GLUCOSE, URINE NEGATIVE (NEGATIVE); KETONES,URINE 20 mg/dL (NEGATIVE); LEUKOCYTE ESTERASE,URINE SMALL (NEGATIVE); NITRITE,URINE NEGATIVE (NEGATIVE); PROTEIN,URINE 100 mg/dL (NEGATIVE); URINE SPECIFIC GRAVITY 1.032
[2019-12-18 12:11] LABS: URINE AMPHETAMINES SCREEN NEGATIVE; URINE BARBITURATES SCREEN NEGATIVE; URINE BENZODIAZEPINES SCREEN NEGATIVE; URINE COCAINE SCREEN NEGATIVE; URINE METHADONE SCREEN NEGATIVE; URINE PHENCYCLIDINE SCREEN NEGATIVE
[2019-12-18 12:29] LABS: URINE MARIJUANA (THC) SCREEN UNCONFIRMED POSITIVE
--- NOTE | 2019-12-18 13:20 | PSYCHOLOGICAL NOTE ---
Psych Note - Psych Note Date seen by psych provider: 12/18/19 Time seen by psych provider: 11:10 Psych Note: Reason for Consult: reported psychosis Patient arrived to [facility] ED via EMS for self reported psychosis. Patient is alert and orientated to person, place, time and circumstance. Mood is originally euthymic with congruent affect as evidenced my smiling and engaging with clinician; however, patient became irritable when it was noted she was providing conflicting information. Clinical Presentation: organized and linear thought processes noncompliant with treatment possible secondary gain Impression/Plan: Patient is cleared from acute psychiatric services. Patient has a long documented history noncompliant with mental health treatment. Dr. Ramon was consulted on the care and management of this patient; attending physician is in agreement with recommendations and disposition.
--- NOTE | 2019-12-18 14:46 | ER Document Report ---
Doctor's Note Notes: 12/18/19 14:46 PHYSICAL EXAMINATION: GENERAL: Well-appearing and in no acute distress. HEAD: Atraumatic, normocephalic. EYES: sclera anicteric, conjunctiva are normal. ENT: nares patent. Moist mucous membranes. NECK: Normal range of motion, supple without lymphadenopathy LUNGS: CTAB and equal. No wheezes rales or rhonchi. HEART: Regular rate and rhythm without murmurs ABDOMEN: Soft, nontender EXTREMITIES: Normal range of motion BACK: No midline tenderness, no step-off or deformity. No CVA tenderness NEUROLOGICAL: Cranial nerves grossly intact. Normal speech. PSYCH: Normal mood, normal affect. SKIN: Warm, Dry, normal turgor, no rashes or lesions noted Patient is requesting to use phone, message relayed to staff. Patient otherwise appears medically clear for discharge or transfer pending behavioral health team disposition 12/18/19 14:57 Behavioral health team states that patient is stable for discharge, there are no medication recommendations for discharge at this time and patient is instructed [facility] who she is already [facility] with.
== END 2019-12-18 15:08 | disposition home or self-care (01) ==
LOC: ER 03:31
DX: F29 Unspecified psychosis not due to a substance or known physiological condition (principal); R41.82 Altered mental status, unspecified
CPT/HCPCS: 36415; 80053; 80307; 81001; 84703; 85025; 93005; 93010; 99285

== ENCOUNTER 2020-01-15 01:36 | Emergency (ER) | payer SELFPAY ==
--- NOTE | 2020-01-15 03:23 | RADIOLOGY REPORT (SQ) ---
CLINICAL INDICATION: chest tightness and pain. TECHNIQUE: PA and lateral views were obtained of the chest COMPARISON: None. FINDINGS: The cardiomediastinal silhouette is normal. The lungs are grossly clear. No evidence of effusion or pneumothorax. Visualized bones are unremarkable. . IMPRESSION: No evidence of active intrathoracic disease .
[2020-01-15 04:20] LABS: ABSOLUTE LYMPHOCYTES (AUTO) 1.6 10^3/uL (0.5-4.7); ABSOLUTE MONOCYTES (AUTO) 0.4 10^3/uL (0.1-1.4); ABSOLUTE NEUT (AUTO) 4.9 10^3/uL (1.7-8.2); BASOPHILS % (AUTO) 0.3 % (0-2); EOSINOPHILS % (AUTO) 0.4 % (0-6); HEMATOCRIT 42.1 % (36.0-47.0); LYMPHOCYTES % (AUTO) 23.3 % (13-45); MEAN CORPUSCULAR HEMOGLOBIN 32.8 pg (27.0-33.4); MEAN CORPUSCULAR HGB CONC 33.4 g/dL (32.0-36.0); MEAN CORPUSCULAR VOLUME 98 fl (80-97); MONOCYTES % (AUTO) 6.2 % (3-13); PLATELET COUNT 300 10^3/uL (150-450); RED BLOOD COUNT 4.28 10^6/uL (3.72-5.28); RED CELL DISTRIBUTION WIDTH 13.4 % (11.5-14.0); SEGMENTED NEUTROPHILS % (AUTO) 69.8 % (42-78); TOTAL CELLS COUNTED % (AUTO) 100 %
[2020-01-15 04:28] LABS: ALBUMIN 4.8 g/dL (3.5-5.0); ALKALINE PHOSPHATASE 64 U/L (38-126); ANION GAP 9 (5-19); ASPARTATE AMINO TRANSFERASE 22 U/L (14-36); BILIRUBIN,TOTAL 0.4 mg/dL (0.2-1.3); BLOOD UREA NITROGEN 8 mg/dL (7-20); CALCIUM 9.8 mg/dL (8.4-10.2); CARBON DIOXIDE 26 mmol/L (22-30); CHLORIDE 103 mmol/L (98-107); CREATINE KINASE 184 U/L (30-135); GLUCOSE 104 mg/dL (75-110); POTASSIUM 4.2 mmol/L (3.6-5.0); TOTAL PROTEIN 8.5 g/dL (6.3-8.2)
[2020-01-15 04:38] LABS: CREATINE KINASE MB 0.55 ng/mL (<4.55)
[2020-01-15 04:47] LABS: TROPONIN I < 0.012 ng/mL
--- NOTE | 2020-01-15 07:20 | EKG REPORT ---
SEVERITY:- NORMAL ECG - SINUS RHYTHM : Confirmed by: David Aviles MD 15-Jan-2020 07:19:30
[2020-01-15 08:44] LABS: APPEARANCE,URINE CLEAR; BILIRUBIN,URINE NEGATIVE (NEGATIVE); COLOR,URINE YELLOW; GLUCOSE, URINE NEGATIVE (NEGATIVE); KETONES,URINE 20 mg/dL (NEGATIVE); LEUKOCYTE ESTERASE,URINE NEGATIVE (NEGATIVE); NITRITE,URINE NEGATIVE (NEGATIVE); PROTEIN,URINE NEGATIVE (NEGATIVE); URINE SPECIFIC GRAVITY 1.017
[2020-01-15 08:56] LABS: URINE AMPHETAMINES SCREEN NEGATIVE; URINE BARBITURATES SCREEN NEGATIVE; URINE BENZODIAZEPINES SCREEN NEGATIVE; URINE COCAINE SCREEN NEGATIVE; URINE METHADONE SCREEN NEGATIVE
[2020-01-15] MEDS ORDERED: ACETAMINOPHEN 325 MG TABLET PO ONE (09:37)
[2020-01-15 09:43] VITALS: BP 135/76
[2020-01-15 09:49] LABS: URINE MARIJUANA (THC) SCREEN UNCONFIRMED POSITIVE; URINE PHENCYCLIDINE SCREEN NEGATIVE
--- NOTE | 2020-01-15 14:54 | ER Document Report ---
Entered by LAURA ANAYA SCRIBE 01/15/20 0732 Acting as scribe for:HANANE ORTIZ MD ED General - General Chief Complaint: Anxiety Stated Complaint: CHEST TIGHTNESS/SHORTNESS OF BREATH/HEART RACING Time Seen by Provider: 01/15/20 07:22 Mode of Arrival: Ambulatory Information source: Patient, [facility] Records Notes: This 24 year old female patient with anxiety and depression presents to the emergency department today with concerns of reproducible chest wall pain. Mor qureshi reports that she has had this pain intermittently since December 12. Patient states that her pain is exacerbated with deep breathing. Patient states that it sometimes keeps her awake at night. Patient mentions that she has not taken her anxiety medication the last two days because she forgot. TRAVEL OUTSIDE OF THE [place] IN LAST 30 DAYS: No - Related Data Allergies/Adverse Reactions: No Known Allergies Allergy (Verified 01/31/18 10:42) Home Medications: Respiradal. Fluxitine Past Medical History - General Information source: Patient - Social History Smoking Status: Never Smoker Cigarette use (# per day): No Chew tobacco use (# tins/day): No Frequency of alcohol use: Rare Drug Abuse: None Occupation: [employer] Lives with: Family Family History: Reviewed & Not Pertinent, Other - Multiple family members with schizophrenia, bipolar and depression including her mother and aunt Psychiatric Medical History: Reports: Hx Anxiety, Hx Depression Surgical Hx: Negative - Immunizations Immunizations up to date: Yes Hx Diphtheria, Pertussis, Tetanus Vaccination: Yes - Is an 19 Hx Pneumococcal Vaccination: 03/14/16 Review of Systems - Review of Systems Constitutional: No symptoms reported EENT: No symptoms reported Cardiovascular: See HPI, Chest pain - reproducible Respiratory: No symptoms reported Gastrointestinal: No symptoms reported Genitourinary: No symptoms reported Female Genitourinary: No symptoms reported Musculoskeletal: No symptoms reported Skin: No symptoms reported Hematologic/Lymphatic: No symptoms reported Neurological/Psychological: See HPI, Anxiety -: Yes All other systems reviewed and negative Physical Exam - Vital signs Vitals: Temp Pulse Resp BP Pulse Ox 98.6 F 56 L 20 133/75 H 99 01/15/20 01:55 01/15/20 01:55 01/15/20 01:55 01/15/20 01:55 01/15/20 01:55 - Notes Notes: Physical Exam: General: Alert, appears well. HEENT: Normocephalic. Atraumatic. PERRL. Extraocular movements intact. Oropharynx clear. Neck: Supple. Non-tender. Respiratory: No respiratory distress. Clear and equal breath sounds bilaterally. Left anterior chest wall tenderness with palpation. Reproducible chest pain. Cardiovascular: Regular rate and rhythm. Abdominal: Normal Inspection. Non-tender. No distension. Normal Bowel Sounds. Back: No gross abnormalities. Extremities: Moves all four extremities. Upper extremities: Normal inspection. Normal ROM. Lower extremities: Normal inspection. No edema. Normal ROM. Neurological: Normal cognition. AAOx4. Normal speech. Psychological: Normal affect. Normal Mood. Skin: Warm. Dry. Normal color. Course - Vital Signs Vital signs: Temp Pulse Resp BP Pulse Ox 98.6 F 52 L 18 136/86 H 100 01/15/20 02:09 01/15/20 05:19 01/15/20 05:19 01/15/20 05:19 01/15/20 05:19 - Laboratory Result Diagrams: 01/15/20 03:55 01/15/20 03:55 Laboratory results interpreted by me: 01/15/20 01/15/20 01/15/20 03:55 03:55 08:10 MCV 98 H Creatine Kinase 184 H Total Protein 8.5 H Urine Ketones 20 H Urine Blood SMALL H Urine Urobilinogen 2.0 H - Diagnostic Test Radiology reviewed: Image reviewed, Reports reviewed - Chest x-ray is unremarkable - EKG Interpretation by Or EKG shows normal: Sinus rhythm, [place], Intervals, QRS Complexes, ST-T Waves Rate: Normal - 60 Rhythm: NSR When compared to previous EKG there are: No significant change Discharge - Discharge Clinical Impression: Anterior chest wall pain Anxiety disorder Qualifiers: Anxiety disorder type: unspecified anxiety disorder Qualified Code(s): F41.9 - Anxiety disorder, unspecified Condition: Stable Disposition: HOME, SELF-CARE Additional Instructions: Chest Wall Pain Your chest pain has been diagnosed as coming from the chest wall. This is often caused by straining the muscles or joints in the chest during physical activity, direct trauma, coughing, or vigorous vomiting. Persons with arthritis are especially prone to this type of pain, due to inflammation of the cartilage joints near the breast bone. Occasionally, no cause can be found. Rest from strenuous physical activity. This kind of chest pain is usually made worse by movement of the chest. Depending on the symptoms, we may medicine such as ibuprofen or Aleve for pain and antiinflammatory effects. If the pain is new, and seems to be due to muscle strain, cold packs can help. Otherwise, apply gentle warmth to the painful area for 15 minutes every hour or two. You should contact the doctor immediately if things change. Further evaluation is needed if you develop a fever or cough, if the nature of the pain changes, or if you become short of breath. Take your regular daily medications when you get home. Take Tylenol with ibuprofen or Aleve for your chest wall pain. Follow-up with a local primary care provider if not improving. RETURN TO THE EMERGENCY ROOM IF ANY NEW OR WORSENING SYMPTOMS. I personally performed the services described in the documentation, reviewed and edited the documentation which was dictated to the scribe in my presence, and it accurately records my words and actions.
== END 2020-01-15 09:45 | disposition home or self-care (01) ==
LOC: ER 01:36
DX: F41.9 Anxiety disorder, unspecified (principal); R07.89 Other chest pain; F32.9 Major depressive disorder, single episode, unspecified; R06.02 Shortness of breath
CPT/HCPCS: 36415; 71046; 80053; 80307; 81001; 82550; 82553; 84484; 84703; 85025; 93005; 93010; 99285

== ENCOUNTER 2020-01-24 22:02 | Emergency (ER) | payer SELFPAY ==
--- NOTE | 2020-01-24 23:12 | ER Document Report ---
ED Medical Screen (RME) - General Stated Complaint: FEELING UNWELL Time Seen by Provider: 01/24/20 22:58 Mode of Arrival: Wheelchair Information source: Patient Notes: HPI; 24-year-old female presents to the emergency room stating that she has hearing voices that are telling her to hurt "someone". States no one in particular. Also states she was discharged earlier today from [facility] and while she was in the waiting room waiting to be seen she took extra doses of her medications. Risperidone 3 mg #3 missing from the bottle, Prozac 10 mg #9 missing from the bottle, hydroxyzine 50 mg #3 missing from the bottle. PE: Patient is groggy and has difficulty following questions. States she was in [facility] from the fifth until today. Unsure why she was hospitalized. Denies suicidal ideation. But the emergency room by EMS. Did speak with poison control who recommends IV fluids, monitor for seizures. Monitor EKG for QT elongation. Recommend activated charcoal at 1 mg/kg. Also a 4-hour Tylenol level from first blood draw. Monitor for minimum of 8 hours. I have greeted and performed a rapid initial assessment of this patient. A comprehensive ED assessment and evaluation of the patient, analysis of test results and completion of the medical decision making process will be conducted by additional ED providers. I have specifically instructed the patient or family members with the patient to immediately return to any nursing staff should anything change in the patient's condition or with their chief complaint. TRAVEL OUTSIDE OF THE [place] IN LAST 30 DAYS: No - Related Data Allergies/Adverse Reactions: No Known Allergies Allergy (Verified 01/31/18 10:42) Past Medical History - Social History Family history: Reviewed & Not Pertinent Renal/ Medical History: Denies: Hx Peritoneal Dialysis Psychiatric Medical History: Reports: Hx Anxiety, Hx Depression - Immunizations Immunizations up to date: Yes Hx Diphtheria, Pertussis, Tetanus Vaccination: Yes - Is an 18 Physical Exam - Vital signs Vitals: Temp Pulse Resp BP Pulse Ox 98.6 F 76 16 149/88 H 96 01/24/20 22:28 01/24/20 22:28 01/24/20 22:28 01/24/20 22:28 01/24/20 22:28 Course - Vital Signs Vital signs: Temp Pulse Resp BP Pulse Ox 98.6 F 76 16 149/88 H 96 01/24/20 22:28 01/24/20 22:28 01/24/20 22:28 01/24/20 22:28 01/24/20 22:28
[2020-01-24 23:39] LABS: ABSOLUTE LYMPHOCYTES (AUTO) 1.1 10^3/uL (0.5-4.7); ABSOLUTE MONOCYTES (AUTO) 0.5 10^3/uL (0.1-1.4); ABSOLUTE NEUT (AUTO) 7.1 10^3/uL (1.7-8.2); BASOPHILS % (AUTO) 0.6 % (0-2); EOSINOPHILS % (AUTO) 0.2 % (0-6); HEMATOCRIT 39.6 % (36.0-47.0); HEMOGLOBIN 13.1 g/dL (12.0-15.5); LYMPHOCYTES % (AUTO) 12.3 % (13-45); MEAN CORPUSCULAR HEMOGLOBIN 32.5 pg (27.0-33.4); MEAN CORPUSCULAR HGB CONC 33.2 g/dL (32.0-36.0); MEAN CORPUSCULAR VOLUME 98 fl (80-97); MONOCYTES % (AUTO) 5.3 % (3-13); PLATELET COUNT 235 10^3/uL (150-450); RED BLOOD COUNT 4.04 10^6/uL (3.72-5.28); SEGMENTED NEUTROPHILS % (AUTO) 81.6 % (42-78); TOTAL CELLS COUNTED % (AUTO) 100 %; WHITE BLOOD COUNT 8.7 10^3/uL (4.0-10.5)
[2020-01-24 23:55] LABS: ACETAMINOPHEN < 10 ug/mL (10-30); ALBUMIN 4.6 g/dL (3.5-5.0); ALCOHOL < 10 mg/dL (NONE DETECTED); ALKALINE PHOSPHATASE 63 U/L (38-126); ANION GAP 7 (5-19); ASPARTATE AMINO TRANSFERASE 23 U/L (14-36); BILIRUBIN,TOTAL 0.1 mg/dL (0.2-1.3); BLOOD UREA NITROGEN 9 mg/dL (7-20); CALCIUM 9.7 mg/dL (8.4-10.2); CARBON DIOXIDE 25 mmol/L (22-30); CHLORIDE 103 mmol/L (98-107); GLUCOSE 128 mg/dL (75-110); POTASSIUM 4.3 mmol/L (3.6-5.0); SALICYLATE < 1.0 mg/dL (2.0-20.0)
[2020-01-25] MEDS: RINGERS SOLUTION,LACTATED 1,000 ML IV ONE (01:26)
--- NOTE | 2020-01-25 01:27 | ER Document Report ---
ED Psych Disorder / Suicide - General Chief Complaint: Overdose Stated Complaint: FEELING UNWELL Time Seen by Provider: 01/24/20 22:58 Mode of Arrival: Wheelchair Notes: Patient is a 24-year-old female that comes emergency department for chief complaint of auditory hallucinations with homicidal ideations. She states that she was hearing voices and they were telling her to hurt the people around her, she states that she did not want to hurt them so she started taking her medications to stop herself. She also states that the voices told her to kill herself. Patient has been noted to have taken #3 risperidone 3 mg, #9 Prozac 10 mg, #3 hydroxyzine 50 mg. Poison control has already been contacted and patient is already drinking activated charcoal on my evaluation. Patient came to the emergency room by EMS, EMS reports that patient was recently hospitalized at [facility] from 01/17/2020 until today although patient is unable to tell us why. Elin Bolanos PA-C spoke to poison control and reports to me that they recommended IV fluids, monitoring for seizure activity, monitor EKG for QT prolongation, give activated charcoal 1 mg/kg p.o. and perform a 4-hour Tylenol level from the first blood draw. Monitoring time is recommended to be 8 hours. TRAVEL OUTSIDE OF THE [place] IN LAST 30 DAYS: No - Related Data Allergies/Adverse Reactions: No Known Allergies Allergy (Verified 01/31/18 10:42) Home Medications: respiridone, prozac, hydroxyzine Past Medical History - General Information source: Patient - Social History Smoking Status: Current Every Day Smoker Frequency of alcohol use: None Drug Abuse: None Lives with: Family Family History: Reviewed & Not Pertinent, Other - Multiple family members with schizophrenia, bipolar and depression including her mother and aunt Patient has homicidal ideation: Yes Renal/ Medical History: Denies: Hx Peritoneal Dialysis Psychiatric Medical History: Reports: Hx Anxiety, Hx Depression - Immunizations Immunizations up to date: Yes Hx Diphtheria, Pertussis, Tetanus Vaccination: Yes - Is an 18 Hx Pneumococcal Vaccination: 03/14/16 Review of Systems - Review of Systems Constitutional: No symptoms reported EENT: No symptoms reported Cardiovascular: No symptoms reported Respiratory: No symptoms reported Gastrointestinal: No symptoms reported Genitourinary: No symptoms reported Female Genitourinary: No symptoms reported Musculoskeletal: No symptoms reported Skin: No symptoms reported Hematologic/Lymphatic: No symptoms reported Neurological/Psychological: See HPI Physical Exam - Vital signs Vitals: Temp Pulse Resp BP Pulse Ox 98.6 F 76 16 149/88 H 96 01/24/20 22:28 01/24/20 22:28 01/24/20 22:28 01/24/20 22:28 01/24/20 22:28 - Notes Notes: GENERAL: Alert, interacts well. No acute distress. HEAD: Normocephalic, atraumatic. EYES: Pupils equal, round, and reactive to light. Extraocular movements intact. ENT: Oral mucosa moist, tongue midline. Charcoal around the lips and on the tongue, otherwise unremarkable. Oropharynx unremarkable. Airway patent. NECK: Full range of motion. Supple. Trachea midline. No lymphadenopathy. LUNGS: Clear to auscultation bilaterally, no wheezes, rales, or rhonchi. No respiratory distress. Non-tender chest wall. HEART: Regular rate and rhythm. No murmur ABDOMEN: Soft, non-tender. Non-distended. EXTREMITIES: Moves all 4 extremities spontaneously. No edema, normal radial and dorsalis pedis pulses bilaterally. No cyanosis. BACK: no cervical, thoracic, lumbar midline tenderness. No saddle anesthesia, no rmal distal neurovascular exam. Moves all extremities in full range of motion. NEUROLOGICAL: Alert and oriented x3. Normal speech. Cranial nerves II through XII grossly intact. Strength 5/5 in all extremities. PSYCH: Flat affect. Responsive but gives only cryptic answers. SKIN: Warm, dry, normal turgor. No rashes or lesions noted. Course - Re-evaluation Re-evalutation: Patient only partially during the charcoal, she states she cannot drink anymore. I explained that she must drink this because of what she took, if she does not take this we will need to give this through an NG tube. Patient states she would prefer the NG tube. Patient changed her mind, patient consumed all of the charcoal orally without difficulty. She has not had any vomiting. Patient is alert, responsive. Patient is voicing suicidal and homicidal ideations along with reporting auditory hallucinations. Patient was placed on IVC paperwork because of the overdose and these facts. This was signed by Dr. Bradley. CBC, chemistry unremarkable, urinalysis unremarkable, EKG unremarkable, tox screen unremarkable except for marijuana. Patient remains sleeping but easily aroused on re-evaluations. 01/25/20 Patient sleeping but easily aroused, monitoring is unremarkable, EKG and Tylenol were repeated and unremarkable, patient has been monitored for 8 hours now per poison control recommendation without decompensation. Patient is now medically cleared pending mental health evaluation. - Vital Signs Vital signs: Temp Pulse Resp BP Pulse Ox 98.6 F 76 23 H 108/86 H 99 01/24/20 22:28 01/24/20 22:28 01/25/20 02:01 01/25/20 02:01 01/25/20 02:01 - Laboratory Result Diagrams: 01/24/20 23:27 01/24/20 23:27 Laboratory results interpreted by me: 01/24/20 01/24/20 01/25/20 23:27 23:27 02:10 MCV 98 H Lymph % (Auto) 12.3 L Seg Neutrophils % 81.6 H Sodium 135.1 L Glucose 128 H Total Bilirubin 0.1 L Urine Blood SMALL H Salicylates < 1.0 L Acetaminophen < 10 L 01/25/20 04:29 MCV Lymph % (Auto) Seg Neutrophils % Sodium Glucose Total Bilirubin Urine Blood Salicylates Acetaminophen < 10 L - EKG Interpretation by Me Additional EKG results interpreted by me: EKG shows sinus rhythm at an rate of 83, QTc 447, normal axis, no T wave inversions or ST segment changes in consecutive leads. Discharge - Discharge Clinical Impression: Suicidal ideations, Homicidal ideations, Auditory hallucinations Drug overdose Qualifiers: Encounter type: initial encounter Injury intent: intentional self-harm Qualified Code(s): T50.902A - Poisoning by unspecified drugs, medicaments and biological substances, intentional self-harm, initial encounter Condition: Stable Disposition: PSYCH HOSP/UNIT
[2020-01-25] MEDS: ACTIVATED CHARCOAL 25 GM BOTTLE PO ONE (02:11)
[2020-01-25 02:24] LABS: APPEARANCE,URINE CLEAR; BILIRUBIN,URINE NEGATIVE (NEGATIVE); COLOR,URINE STRAW; GLUCOSE, URINE NEGATIVE (NEGATIVE); KETONES,URINE NEGATIVE (NEGATIVE); LEUKOCYTE ESTERASE,URINE NEGATIVE (NEGATIVE); NITRITE,URINE NEGATIVE (NEGATIVE); PROTEIN,URINE NEGATIVE (NEGATIVE); URINE SPECIFIC GRAVITY 1.004; UROBILINOGEN,URINE NEGATIVE mg/dL (<2.0)
[2020-01-25 02:38] LABS: URINE AMPHETAMINES SCREEN NEGATIVE; URINE BARBITURATES SCREEN NEGATIVE; URINE BENZODIAZEPINES SCREEN NEGATIVE; URINE COCAINE SCREEN NEGATIVE; URINE METHADONE SCREEN NEGATIVE; URINE PHENCYCLIDINE SCREEN NEGATIVE
[2020-01-25 02:40] LABS: URINE MARIJUANA (THC) SCREEN UNCONFIRMED POSITIVE
[2020-01-25] MEDS: CHLORPROMAZINE HCL 50 MG TABLET PO ONE (10:09)
--- NOTE | 2020-01-25 10:27 | ER Document Report ---
Doctor's Note Notes: 01/25/20 10:00 Patient repeatedly ambulating to the bathroom. Patient denies any dysuria or diarrhea symptoms. Nursing staff are concerned that patient is attempting to elope. Patient does complain of nausea. 01/25/20 11:43 Patient appears medically clear at this time. Patient denies any suicidal homicidal ideation. Patient does not meet IVC criteria per behavioral health team. Patient was provided with outpatient resource information and is agreeable with discharge plan of care.
--- NOTE | 2020-01-25 11:48 | PSYCHOLOGICAL NOTE ---
Psych Note - Psych Note Date seen by psych provider: 01/25/20 Time seen by psych provider: 10:20 Psych Note: Reason for Consult: Homicidal ideation/ reported auditory hallucinations Patient reports that she was just discharged from [facility] psychiatric treatment yesterday after 1 week treatment. She reports she came to [facility] because "I did not feel good." She reports she is currently staying at her dad's. Patient denies overdosing on medications however then confirms she took extra pills while she was in the lobby because "they were taking too long... I wanted to feel better... I was waiting patiently but they were not doing anything." Patient now denies hearing voices last night however does confirm she reported to evening staff she was hearing voices telling her to kill people. Patient denies this actually was happening and stated that she was just feeling "weird and did not know what I was feeling so I said I was hearing voices to kill people." Patient adamantly denies any thoughts of wanting to harm herself or others. Patient reports that she was hoping to make a phone call to her friend in [place] because she feels that she would do better off visiting with a friend that lives there. Patient is alert and orientated to person, place, time and circumstance. Mood is originally euthymic with congruent affect ; however, patient became irritable when it was noted she was providing conflicting information (this is typical pre sentation for this patient). Patient denies suicidal and homicidal ideation; confirms she made homicidal comments last night but reports she lied. Delusions are absent. Patient reported auditory hallucinations;however, she denies this morning stating she lied about hearing voices last night. Patient is not demonstrating any behaviors of responding to internal stimuli. Patient is able to clearly articulate her needs and wants. She maintains good eye contact with normal conversational speech. Attention and concentration are good. Insight, judgment, impulse control is fair. Clinical Presentation: probable secondary gain organized and linear thought processes noncompliant with treatment Homeless Impression/Plan: Patient is recommended for rescind of IVC and is cleared from acute psychiatric services; paperwork is signed and placed in patient's chart. Patient has a long documented history noncompliant with mental health treatment and providing conflicting information regards to symptoms. Patient now denies psychiatric symptoms she reported last night. There is no evidence the patient is responding to internal stimuli as patient maintains good eye contact, organized and linear thought processes, and normal conversational speech. Patient has never been observed with symptoms of psychosis and it is noted past documentation indicates the patient just started reporting this symptoms in the last few months; previously the patient denies auditory and visual hallucinations. She does have a chronic THC use. She denies any [id number] of wanting to harm herself or others and last night reported vague passive homicidal ideation with no plan means or intent. Patient reports living with her father; however, has a long documented history of actually being homeless and discord with her father. She has been provided local resource list of economic resources. [facility] Patient was provided local resource list of area providers if she would like to try a different provider. Patient was provided psychoeducation on importance of maintaining medications and not starting or stopping. Due to her long history of noncompliance with medication and therapeutic services, patient is encouraged to work with an outpatient provider that can follow her treatment. Dr. Ramon was consulted on the care and management of this patient; attending physician is in agreement with recommendations and disposition.
[2020-01-25 13:27] VITALS: BP 126/64
--- NOTE | 2020-01-25 15:12 | EKG REPORT ---
SEVERITY:- NORMAL ECG - SINUS RHYTHM : Confirmed by: Osvaldo Chavez MD 25-Jan-2020 15:11:47
--- NOTE | 2020-01-25 15:12 | EKG REPORT ---
SEVERITY:- BORDERLINE ECG - SINUS RHYTHM BORDERLINE T ABNORMALITIES, ANTERIOR LEADS : Confirmed by: Osvaldo Chavez MD 25-Jan-2020 15:11:53
== END 2020-01-25 13:00 | disposition home or self-care (01) ==
LOC: ER 22:02
DX: T43.592A Poisoning by other antipsychotics and neuroleptics, intentional self-harm, initial encounter (principal); T43.222A Poisoning by selective serotonin reuptake inhibitors, intentional self-harm, initial encounter; R45.851 Suicidal ideations; R45.850 Homicidal ideations; R44.0 Auditory hallucinations
CPT/HCPCS: 93005 ×2; 99284; 36415; 80307 ×4; 85025; 81025; 80053; 81001; 93010 ×2; J3490 ×2; J7120